=== PATIENT | female | born 1970 | race Two or more races ===

== ENCOUNTER → 2021-09-30 | Outpatient (CLI) | payer BC ==
[2021-10-01 00:02] LABS: Basophils # (A) 0.04 X 10*3/uL (0.00-0.10); Basophils % (A) 0.4 %; Eosinophils # (A) 0.21 X 10*3/uL (0.04-0.35); Eosinophils % (A) 1.9 %; HCT 42.3 % (37.2-46.3); HGB 14.2 g/dL (12.0-15.0); Immature Grans, Automated 0.9 %; Lymphocytes # (A) 2.07 X 10*3/uL (0.90-5.00); Lymphocytes % (A) 18.7 %; MCH 31.3 pg (27.0-32.0); MCHC 33.6 g/dL (32.0-37.0); MCV 93.2 fL (80.0-97.0); Mean Platelet Volume 9.1 fL (9.5-12.2); Monocytes # (A) 0.63 X 10*3/uL (0.20-1.00); Monocytes % (A) 5.7 %; NRBC Per 100 WBC 0 /100 WBCS (0.0-0.0); Neutrophils # (A) 8.02 X 10*3/uL (1.80-7.70); Neutrophils % (A) 72.4 %; Platelet Count 334 X 10*3/uL (140-440); RBC 4.54 X 10*6/uL (4.10-5.20); RBC Morphology NORMAL; RDW 13.2 % (11.5-14.5); WBC 11.07 X 10*3/uL (4.50-10.00)
[2021-10-01 00:16] LABS: Erythrocyte Sedimentation Rate 15 mm/Hr (0-30)
[2021-10-01 00:26] LABS: ALT 28 U/L (8-44); AST 24 U/L (13-35); African American GFR (CKD) 115.5 (60.0-200.0); BUN/Creat Ratio 11.86 Ratio (12.00-20.00); Blood Urea Nitrogen 8.3 mg/dL (9.0-27.0); Calcium 9.4 mg/dL (8.7-10.3); Carbon Dioxide 25.2 mmol/L (20.0-27.5); Chloride 97 mmol/L (96-109); Glucose 78 mg/dL (70-110); Non-African American GFR(CKD) 99.6 (60.0-200.0); Potassium 4.2 mmol/L (3.5-5.5); Sodium 136 mmol/L (135-145); Uric Acid 4.5 mg/dL (2.9-7.7)
[2021-10-01 00:28] LABS: Creatine Kinase 105 U/L (26-186)
[2021-10-01 00:29] LABS: Rheumatoid Factor, Qnt <10 IU/mL (0-15)
[2021-10-01 10:39] LABS: HLA B27 NEGATIVE
[2021-10-01 13:00] LABS: Angiotensin-1 Converting Enz. <3 U/L (8-52)
[2021-10-01 19:32] LABS: Cyclic Citrull Pep IgG Unit <0.5 U/mL; Cyclic Citrullinated Pep IgG NEGATIVE (NEGATIVE)
== END | disposition home or self-care (01) ==
LOC: LABWHC1 15:55
PROVIDERS: ATTEND Orthopaedic Surgery
DX: M17.12 Unilateral primary osteoarthritis, left knee (principal)
CPT/HCPCS: 36415; 80048; 82164; 82306; 82550; 83520; 84439; 84443; 84450; 84460; 84550; 85025; 85652; 86038; 86140; 86200; 86431; 86812

== ENCOUNTER 2024-01-20 14:56 | Inpatient (IN) | payer BC, MEDICAID, OTHER ==
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
[2024-01-20] MEDS ORDERED: LORazepam 2 MG/ML INJ IV PRN ×3 (18:25)
[2024-01-20 20:24] LABS: Amphetamine Screen,Urine Not Detected (NotDetected); Barbiturate Screen,Urine Not Detected (NotDetected); Benzodiazepines Screen,Urine Not Detected (NotDetected); Cocaine Screen,Urine Not Detected (NotDetected); Methadone Screen, Urine Not Detected (NotDetected); Opiate Screen,Urine Not Detected (NotDetected); Oxycodone Screen, Urine Not Detected (NotDetected); Phencyclidine Screen,Urine Not Detected (NotDetected); Tricyclic Antidepressant,Urine Not Detected (NotDetected); Urn Cannabinoid Scrn Not Detected (NotDetected)
[2024-01-20 20:26] LABS: Amorphous Sediment,Urine Occasional /hpf; Appearance,Urine Turbid (Clear); Bilirubin,Urine Negative (Negative); Blood,Urine Negative (Negative); Color,Urine Yellow; Glucose,Urine (UA) Negative (Negative); Ketones,Urine Negative (Negative); Leukocyte Esterase,Urine Small (Negative); Nitrite,Urine Negative (Negative); Protein,Urine Trace (Negative); RBC,Urine 1 /hpf (0-5); Specific Gravity,Urine 1.018 (1.001-1.035); Squamous Epithelial Cell,Urine 23 /hpf (0-4); Urobilinogen,Urine <2.0 mg/dL (<2.0); WBC,Urine 1 /hpf (0-5)
[2024-01-21] MEDS: NICOTINE GUM (POLACRILEX) 2 MG GUM BUCCAL STA (00:17)
[2024-01-21] MEDS: NICOTINE 14MG/24HR PATCH TRANSDERM STA (00:19)
[2024-01-21] MEDS ORDERED: haloperidoL 5 MG TAB PO PRN (01:04)
[2024-01-21] MEDS ORDERED: LORazepam 2 MG/ML INJ IM PRN (01:04)
[2024-01-21] MEDS ORDERED: HALOPERIDOL LACTATE 5 MG/ML 1 ML VIAL IM PRN (01:04)
[2024-01-21] MEDS ORDERED: ACETAMINOPHEN TAB 325 MG TAB PO PRN (01:04)
[2024-01-21] MEDS ORDERED: LORazepam 1 MG TAB PO PRN ×2 (01:04)
[2024-01-21] MEDS: traZODone HCL 50 MG TAB PO PRN (01:46)
[2024-01-21] MEDS ORDERED: MULTIVITAMINS, THERA 1 EACH TAB PO SCH (09:00)
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
[2024-01-21] MEDS: NICOTINE 21MG/24HR PATCH TRANSDERM SCH (12:02)
[2024-01-21] MEDS: ASPIRIN 81 MG PO SCH (12:02)
[2024-01-21] MEDS: THIAMINE 100 MG TAB PO SCH (12:02)
[2024-01-21] MEDS: FOLIC ACID 1 MG TAB PO SCH (12:02)
[2024-01-21] MEDS: VENLAFAXINE HCL ER 150 MG CAP PO SCH (12:02)
[2024-01-21] MEDS: ATORVASTATIN 40 MG TAB PO SCH (12:03)
[2024-01-21] MEDS: MAGNESIUM OXIDE 400 MG TAB PO SCH (12:03)
[2024-01-21] MEDS: MULTIVITAMINS, THERA 1 EACH TAB PO SCH (12:03)
[2024-01-21] MEDS: LISINOPRIL-HCTZ 10-12.5 MG 1 EACH TAB PO SCH (12:03)
[2024-01-21] MEDS: IBUPROFEN 600 MG TAB PO PRN (21:04)
[2024-01-21] MEDS: MAGNESIUM HYDROXIDE 2,400 MG/30 ML CUP PO PRN (21:06)
--- NOTE | 2024-01-21 23:26 | P.MDCNMH ---
History of Present Illness H&P Date: 01/21/24 Chief Complaint: Medical evaluation And then 53-year-old female with hypertension Patient coming in for evaluation of mental health she denies any suicidal or homicidal ideation however she does report low self-esteem and depressed mood. Patient reports symptoms suggestive of restless legs she claims that in the evening time she feels like her legs tend to feel shaky and uncomfortable she gets some comfort with walking around and it bothers her throughout the night as it prevents her from getting a good night sleep. Denies any low back pain denies any numbness or tingling Patient denies any fevers chills coughing shortness of breath chest pain nausea vomiting abdominal pain changes in bowel or urinary habit denies any GI bleeding Patient admits to tobacco smoking denies any illicit drugs she also admits to heavy alcohol consumption almost daily she did not quantify but she admits that she is using alcohol to help elevate her mood review of systems Pertinent positives as noted in HPI. All other systems were reviewed and are negative on exam Constitutional: No acute distress, Eyes: Anicteric sclerae, moist conjunctiva, Pupils equal round reactive to light Lungs: Clear to auscultation Clear to percussion Normal respiratory effort, no accessory muscle use Cardiovascular: Heart regular in rate and rhythm, No murmurs, gallops, or rubs No peripheral edema Abdominal: Soft Nontender, no guarding, rebound or rigidity Abdomen moving with respiration Normoactive bowel sounds Extremities: No digital cyanosis No clubbing Pedal pulses intact and symmetrical Radial pulses intact and symmetrical No calf tenderness Psychiatric: Alert and oriented to person, place and time Neuro Muscles Strength 5/5 in all 4 extremities Sensation to light touch grossly present throughout Cranial nerves II-XII grossly intact Past Medical History Past Medical History: CVA/TIA, Hypertension Additional Past Medical History / Comment(s): TMI History of Any Multi-Drug Resistant Organisms: None Reported Past Surgical History: Section, Orthopedic Surgery Past Psychological History: Anxiety, Depression Smoking Status: Current every day smoker Past Alcohol Use History: Daily, Heavy Past Drug Use History: None Reported Medications and Allergies Home Medications Medication Instructions Recorded Confirmed Type Aspirin EC [Ecotrin Low Dose] 81 mg PO DAILY 01/20/24 01/20/24 History Lisinopril-Hctz 10-12.5 mg 1 tab PO DAILY 01/20/24 01/20/24 History [Zestoretic 10-12.5] Magnesium 1,000 mg PO DAILY 01/20/24 01/20/24 History Multivitamins, Thera [Multivitamin 1 tab PO DAILY 01/20/24 01/20/24 History (formulary)] Rosuvastatin [Crestor] 20 mg PO DAILY 01/20/24 01/20/24 History Tolterodine ER [Detrol LA] 4 mg PO DIRECTED 01/20/24 01/20/24 History Venlafaxine HCl ER [Effexor Xr] 150 mg PO DAILY 01/20/24 01/20/24 History Allergies Allergy/AdvReac Type Severity Reaction Status Date / Time No Known Allergies Allergy Verified 01/20/24 19:07 Physical Exam Vitals: Vital Signs Temp Pulse Pulse Resp BP BP Pulse Ox 01/21/24 01:05 97.7 F 98 18 133/71 97 01/21/24 00:55 93 14 126/77 98 Cranial Nerve Examination - Cranial Nerves Cranial Nerve II- Optic: Intact Cranial Nerve III- Oculomotor: Intact Cranial Nerve IV- Trochlear: Intact Cranial Nerve V- Trigeminal: Intact Cranial Nerve - Abducens: Intact Cranial Nerve VII- Facial: Intact Cranial Nerve VIII- Auditory: Intact Cranial Nerve IX- Glossopharyngeal: Intact Cranial Nerve X- Vagus: Intact Cranial Nerve XI- Accessory: Intact Cranial Nerve XII- Hypoglossal: Intact Assessment and Plan Assessment: Hypertension controlled Continue with lisinopril hydrochlorothiazide Symptoms suggestive of restless leg syndrome One-time dose of [place] 5-325 mg Check iron studies and ferritin, replace ferritin if low by iron supplementation with goal of ferritin above 75. Ferritin and iron studies within normal limit then consider starting medications like gabapentine, or requip alcohol abuse and depneda dependence Benzos per CIWA scale Thiamine p.o. daily Patient counseled to quit heavy drinking depression management per psych team follow up CBC CMP iron studies and ferritin urine drug screen negative urinalysis unremarkable patient stable from medical stand point thank you for this consultation
[2024-01-22] MEDS: HYDROcodone/APAP 5-325MG 1 EACH TAB PO STA (00:45)
[2024-01-22 09:56] LABS: Basophils # (A) 0.1 k/uL (0-0.2); Basophils % (A) 1 %; Eosinophils # (A) 0.3 k/uL (0-0.7); Eosinophils % (A) 4 %; HCT 44.9 % (34.0-46.0); Lymphocytes # (A) 2.5 k/uL (1.0-4.8); Lymphocytes % (A) 31 %; MCH 31.4 pg (25.0-35.0); MCHC 33.5 g/dL (31.0-37.0); MCV 93.7 fL (80.0-100.0); Mean Platelet Volume 7.8; Monocytes # (A) 0.5 k/uL (0-1.0); Monocytes % (A) 6 %; Neutrophils # (A) 4.5 k/uL (1.3-7.7); Neutrophils % (A) 56 %; Platelet Count 290 k/uL (150-450); RBC 4.79 m/uL (3.80-5.40); RDW 12.8 % (11.5-15.5)
[2024-01-22 10:02] LABS: ALT 40 U/L (4-34); AST 39 U/L (14-36); African American GFR (CKD) >90 (>60 ml/min/1.73 sqM); Albumin 4.3 g/dL (3.5-5.0); Alkaline Phosphatase 75 U/L (38-126); Anion Gap 6 mmol/L; Bilirubin, Delta 0.3 mg/dL (0.0-0.2); Bilirubin,Unconjugated 0.4 mg/dL (0.0-1.1); Blood Urea Nitrogen 18 mg/dL (7-17); Calcium 9.7 mg/dL (8.4-10.2); Carbon Dioxide 28 mmol/L (22-30); Chloride 105 mmol/L (98-107); Glucose 133 mg/dL (74-99); Non-African American GFR(CKD) >90 (>60 ml/min/1.73 sqM); Potassium 4.5 mmol/L (3.5-5.1); Sodium 139 mmol/L (137-145); Total Bilirubin 0.7 mg/dL (0.2-1.3)
[2024-01-22] MEDS: VENLAFAXINE HCL ER 75 MG CAP PO STA (10:42)
--- NOTE | 2024-01-22 15:29 | P.PN ---
Progress Note - Text Progress Note Date: 01/22/24 Follow-up Mediation Review Chief Complaint: I did not get increased Effexor. Subjective: The patient noted that she is feeling the same. She noted getting only 150 mg of Effexor this morning. She wants to see the effect of higher dose. She was given another 75 mg stat. The patient was explained that she may not notice and difference till the optimal dose is achieved. She was told that she may see some improvement with 5-7 days but full benefit of antidepressant may take 4-6 weeks. The patient was anxious about this information but was given and support and informed that she will be discharge after acute stabilization and the rest of the improvement can take place as an out-pt. She was reassured tht her dose will be titrated rapidly if she experiences no side effect. The patient has been compliant with medications. She continues to report depression, anxiety and sleep impairment. She has not noticed any change in her depressive symptomatology. The patient has been attending the groups. The participation is good. The interaction with staff and peers is good. The patient is compliant with treatment recommendations. Leading questions: The patient admitted to Depression and Anxiety. Denied SI or HI. Denied symptoms consistent with psychosis Sleep and Appetite: Fair Change in family/ living/job/financial/daily routine: No change. Change in medical condition: No change. Change in medications: No change. Side effects from Medications: None. Allergies: No change. Objective- MSE: Alert and attentive. Orientation times three. Dressed and Groomed: Appropriately. Pleasant and cooperative. Psychomotor Activity: Normal. Speech: Normal in tone, quality and quantity. Mood: Depressed and anxious. Affect: Tense and anxious SI or HI: None. Perceptual disturbance: None. Thought Content: No paranoia or other delusional thinking noted. Thought Process: Normal. Cognition: Intact Judgment and Insight: Good AIMS: Normal. Labs: No new labs. Diagnosis: No change. Plan and Recommendations: Continue current Medications. Monitor MS and side effects of medications and adjust medications accordingly. Provide supportive psychotherapy. The patient provided psychoeducation and advised The patient provided Substance abuse counseling. Smoke cessation therapy. The patient to attend [facility]. Medication Consent with explanation of risk/benefits and side effects: Explained and obtained.
[2024-01-22 15:40] LABS: Chol/HDL Ratio 2.99 Ratio; LDL Cholesterol,Calculated 82.2 mg/dL (0.0-131.0)
[2024-01-22] MEDS: LORazepam 1 MG TAB PO PRN (17:31)
[2024-01-23] MEDS: VENLAFAXINE HCL ER 75 MG CAP PO SCH (09:42)
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
[2024-01-23] MEDS ORDERED: BENZOCAINE 20 % GEL 11.9 GM TUBE MM PRN (16:15)
[2024-01-23] MEDS: PSYLLIUM HUSK 100% 6 GM PACKET PO SCH (17:19)
[2024-01-24 07:49] LABS: % Iron Saturation 31.91 (12.00-45.00)
--- NOTE | 2024-01-24 09:11 | P.PN ---
Subjective Progress Note Date: 01/24/24 Patient Name: Monica Kline Date of : 1970 Patient Status: Inpatient Attending Provider: Tod Eckert Date: 01/24/24 Initialization Date: 01/21/24 09:48 Subjective data: Patient was seen and chart was reviewed and case discussed with nursing staff Patient reports that she is just woke up and that she is feeling about the same She also reports that she does not have an alcohol problem but that when the [place] stopped working that she decided to supplement and quit drinking She states that she was feeling overwhelmed and felt that alcohol was her best treatment at that time Currently denies any suicidal or homicidal ideations Admits to still feeling helpless and hopeless Objective: MSE: Alert and attentive. Orientation times three Dressed and Groomed: Appropriately. Pleasant and cooperative. Psychomotor Activity: Normal. Speech: Normal in tone, quality, and quantity. Mood: Depressed and anxious. Affect: Consistent with mood. SI or HI: None. Perceptual disturbance: None. Thought Content: No paranoia or other delusional thinking noted. Thought Process: Normal. Cognition: Intact Judgment and Insight: Poor. AIMS: Normal Labs: Available labs reviewed. Diagnosis: Major depressive disorder, single episode, severe Rule out pervasive persistent depressive disorder/dysthymia Alcohol use disorder unspecified Plan and Recommendations: Agree with the current treatment plan Continue current Medications. Effexor to 225 mg po daily. Monitor MS and side effects of medications and adjust medications accordingly. Provide supportive psychotherapy and psychoeducation. The patient provided psychoeducation. Te patient provided with substance abuse counselling and advised to attend AA/NA Smoke cessation therapy. The patient to attend juarez Milieu. EKG ordered. Medication Consent with explanation of risk/benefits and side effects: Active Medications Generic Name Dose Route Start Last Admin Trade Name Freq PRN Reason Stop Dose Admin Acetaminophen 650 mg 01/21/24 01:04 Acetaminophen Tab 325 Mg Tab PO Q4HR PRN Mild Pain (Scale 1 to 3) Al Hydroxide/Mg Hydroxide 30 ml 01/21/24 01:04 Mag Hydrox/Al Hydrox/Simeth 355 Ml Bottle PO Q4HR PRN GI Upset Aspirin 81 mg 01/21/24 09:00 01/23/24 09:42 Aspirin 81 Mg PO 81 mg DAILY CAROL Administration Atorvastatin Calcium 40 mg 01/21/24 09:00 01/23/24 09:42 Atorvastatin 40 Mg Tab PO 40 mg DAILY CAROL Administration Folic Acid 1 mg 01/21/24 09:00 01/23/24 09:42 Folic Acid 1 Mg Tab PO 1 mg DAILY CAROL Administration Lisinopril/HCTZ 1 each 01/21/24 09:00 01/23/24 09:43 Lisinopril-Hctz 10-12.5 Mg 1 Each Tab PO 1 each DAILY CAROL Administration Haloperidol 5 mg 01/21/24 01:04 Haloperidol 5 Mg Tab PO Q6HR PRN Agitation Haloperidol Lactate 5 mg 01/21/24 01:04 Haloperidol Lactate 5 Mg/Ml 1 Ml Vial IM Q6HR PRN Severe Agitation Hydroxyzine Pamoate 25 mg 01/22/24 10:35 Hydroxyzine Pamoate 25 Mg Cap PO Q8HR PRN Anxiety Ibuprofen 600 mg 01/21/24 01:04 01/22/24 20:43 Ibuprofen 600 Mg Tab PO 600 mg Q6HR PRN Administration Moderate Pain (Scale 4 to 6) Lorazepam 1 mg 01/21/24 01:04 01/22/24 17:31 Lorazepam 1 Mg Tab PO 1 mg Q6HR PRN Administration Anxiety Lorazepam 1 mg 01/21/24 01:04 Lorazepam 2 Mg/Ml Inj IM Q6HR PRN Severe Agitation Lorazepam 1 mg 01/21/24 01:04 Lorazepam 1 Mg Tab PO Q6HR PRN CIWA 8 or 9 Lorazepam 2 mg 01/21/24 01:04 Lorazepam 1 Mg Tab PO Q6HR PRN Ciwa greater than 10 Magnesium Hydroxide 2,400 mg 01/21/24 01:04 01/21/24 21:06 Magnesium Hydroxide 2,400 Mg/30 Ml Cup PO 2,400 mg DAILY PRN Administration Constipation Magnesium Oxide 800 mg 01/21/24 09:00 01/23/24 09:42 Magnesium Oxide 400 Mg Tab PO 800 mg DAILY CAROL Administration Multivitamins 1 each 01/21/24 09:00 01/23/24 09:42 Multivitamins, Thera 1 Each Tab PO 1 each DAILY CAROL Administration Nicotine 1 patch 01/21/24 09:00 01/23/24 09:42 Nicotine 21mg/24hr Patch TRANSDERM 1 patch DAILY CAROL Administration Thiamine HCl 100 mg 01/21/24 09:00 01/23/24 09:42 Thiamine 100 Mg Tab PO 100 mg DAILY CAROL Administration Trazodone HCl 50 mg 01/21/24 01:04 01/22/24 20:43 Trazodone Hcl 50 Mg Tab PO 50 mg HS PRN Administration Insomnia Venlafaxine HCl 225 mg 01/23/24 09:00 01/23/24 09:42 Venlafaxine Hcl Er 75 Mg Cap PO 225 mg DAILY CAROL Administration Tommie Can MD Objective - Vital Signs Vital signs: Vital Signs Temp 98.1 F 01/24/24 06:47 Pulse 81 01/24/24 06:47 Resp 14 01/24/24 06:47 BP 133/79 01/24/24 06:47 Pulse Ox 97 01/24/24 06:47 FiO2 - Labs CBC & Chem 7: 01/22/24 08:59 01/22/24 08:59
[2024-01-24] MEDS: hydrOXYzine pamoate 25 MG CAP PO PRN (20:45)
--- NOTE | 2024-01-25 13:59 | P.PN ---
Progress Note - Text Progress Note Date: 01/25/24 Follow-up Mediation Review Chief Complaint: No relief with increased dose. Subjective: The patient noted that she is feeling the same. She does not think that the increased dose has helped her. Her anxiety is better with increased Hydroxyzine. Discussed increasing Effexor to 300 mg daily. Explained the side effects, risk/benefits. The patient understood and consented. medications. She continues to report depression, anxiety, and sleep impairment. She has not noticed improvement in anxiety. The patient has been attending the groups. The participation is good. The interaction with staff and peers is good. The patient is compliant with treatment recommendations. Leading questions: The patient admitted to Depression and Anxiety. Denied SI or HI. Denied symptoms consistent with psychosis Sleep and Appetite: Fair Change in family/ living/job/financial/daily routine: No change. Change in medical condition: No change. Change in medications: Increased Effexor to 300 mg daily. Side effects from Medications: None. Allergies: No change. Objective- MSE: Alert and attentive. Orientation times three. Dressed and Groomed: Appropriately. Pleasant and cooperative. Psychomotor Activity: Normal. Speech: Normal in tone, quality, and quantity. Mood: Depressed and anxious. Affect: Tense and anxious SI or HI: None. Perceptual disturbance: None. Thought Content: No paranoia or other delusional thinking noted. Thought Process: Normal. Cognition: Intact Judgment and Insight: Good AIMS: Normal. Labs: No new labs. Diagnosis: No change. Plan and Recommendations: Continue current Medications. Increased Effexor 300 mg po daily. Monitor MS and side effects of medications and adjust medications accordingly. Provide supportive psychotherapy. The patient provided psychoeducation and advised The patient provided Substance abuse counseling. Smoke cessation therapy. The patient to attend juarez activities. Medication Consent with explanation of risk/benefits and side effects: Explained and obtained.
[2024-01-25] MEDS: DOCUSATE 100 MG CAP PO PRN (15:01)
[2024-01-26] MEDS: VENLAFAXINE HCL ER 150 MG CAP PO SCH (09:18)
--- NOTE | 2024-01-26 13:18 | P.PN ---
Progress Note - Text Progress Note Date: 01/26/24 Follow-up Mediation Review Chief Complaint: I am feeling a lot better. Subjective: The patient noted that she is feeling much better with increased dose. The patient appeared in good spirits. The patient had no complaints today. She reported no side effects. She has been compliant with medications. The patient has been attending the groups. The participation is good. The interaction with staff and peers is good. The patient is compliant with treatment recommendations. Leading questions: The patient admitted to Depression and Anxiety. Denied SI or HI. Denied symptoms consistent with psychosis Sleep and Appetite: Fair Change in family/ living/job/financial/daily routine: No change. Change in medical condition: No change. Change in medications: No change. Side effects from Medications: None. Objective- MSE: Alert and attentive. Orientation times three. Dressed and Groomed: Appropriately. Pleasant and cooperative. Psychomotor Activity: Normal. Speech: Normal in tone, quality, and quantity. Mood: Depressed and anxious- Improving. Affect: Appropriate to the mood. SI or HI: None. Perceptual disturbance: None. Thought Content: No paranoia or other delusional thinking noted. Thought Process: Normal. Cognition: Intact Judgment and Insight: Good AIMS: Normal. Labs: No new labs. Diagnosis: No change. Plan and Recommendations: Continue current Medications. Monitor MS and side effects of medications and adjust medications accordingly. Provide supportive psychotherapy. The patient provided psychoeducation and advised The patient provided Substance abuse counseling. Smoke cessation therapy. The patient to attend juarez activities. Medication Consent with explanation of risk/benefits and side effects: Explained and obtained.
--- NOTE | 2024-01-27 12:13 | P.PN ---
Progress Note - Text Progress Note Date: 01/27/24 Follow-up Mediation Review Chief Complaint: I am doing good. Subjective: The patient continues to feel good. She noted that her symptoms have improved. She is no more feeling depressed. The patient noted that her is seeing improvement in her depression. The patient was in good spirits. The patient had no complaints today. She reported no side effects. She has been compliant with medications. The patient has been attending the groups. The participation is good. The interaction with staff and peers is good. The patient is compliant with treatment recommendations. Leading questions: The patient admitted to Depression and Anxiety. Denied SI or HI. Denied symptoms consistent with psychosis Sleep and Appetite: Fair Change in family/ living/job/financial/daily routine: No change. Change in medical condition: No change. Change in medications: No change. Side effects from Medications: None. Objective- MSE: Alert and attentive. Orientation times three. Dressed and Groomed: Appropriately. Pleasant and cooperative. Psychomotor Activity: Normal. Speech: Normal in tone, quality, and quantity. Mood: Depressed and anxious- Improving. Affect: Appropriate to the mood. SI or HI: None. Perceptual disturbance: None. Thought Content: No paranoia or other delusional thinking noted. Thought Process: Normal. Cognition: Intact Judgment and Insight: Good AIMS: Normal. Labs: No new labs. Diagnosis: No change. Plan and Recommendations: Continue current Medications. Monitor MS and side effects of medications and adjust medications accordingly. Provide supportive psychotherapy. The patient provided psychoeducation and advised The patient provided Substance abuse counseling. Smoke cessation therapy. The patient to attend juarez activities. Medication Consent with explanation of risk/benefits and side effects: Explained and obtained.
[2024-01-27 14:14] VITALS: TEMP 97.1
[2024-01-28 08:50] VITALS: BP 148/75; PULSE 109; RESP 20
[2024-01-28] MEDS: MAG HYDROX/AL HYDROX/SIMETH 355 ML BOTTLE PO PRN (09:49)
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
== END 2024-01-28 15:20 | disposition home or self-care (01) | DRG 885 ==
LOC: EC 14:56 → 3MHU 01-21 00:12
PROVIDERS: ADMIT Psychiatry & Neurology Psychiatry; ATTEND Psychiatry & Neurology Psychiatry
DX: F32.2 Major depressive disorder, single episode, severe without psychotic features (principal); F10.20 Alcohol dependence, uncomplicated; F34.1 Dysthymic disorder; I10 Essential (primary) hypertension; Z11.52 Encounter for screening for COVID-19; Z28.310 Unvaccinated for COVID-19; F41.9 Anxiety disorder, unspecified; N95.1 Menopausal and female climacteric states; F17.200 Nicotine dependence, unspecified, uncomplicated; Z71.6 Tobacco abuse counseling; Z79.82 Long term (current) use of aspirin; Z79.899 Other long term (current) drug therapy; Z86.73 Personal history of transient ischemic attack (TIA), and cerebral infarction without residual deficits; Z87.820 Personal history of traumatic brain injury; Z71.41 Alcohol abuse counseling and surveillance of alcoholic
CPT/HCPCS: 80053; 80061; 80306; 81001; 81025; 82075; 82248; 82728; 83036; 83540; 83550; 84443; 85025; 87636; 93005; 99285